=== PATIENT | male | born 1955 | race Caucasian/White ===

== ENCOUNTER 2022-09-13 11:18 | Emergency (ER) | payer OTHER ==
[2022-09-13] MEDS ORDERED: Acetaminophen 500 MG TAB ONE (11:46)
== END 2022-09-13 12:35 | disposition home or self-care (01) ==
LOC: NAV ERS 11:18 → EEVIPCON 11:18 → NAV ERS 12:35
DX: S00.03XA Contusion of scalp, initial encounter (principal); S00.83XA Contusion of other part of head, initial encounter; E78.5 Hyperlipidemia, unspecified; I11.0 Hypertensive heart disease with heart failure; I50.9 Heart failure, unspecified; E11.9 Type 2 diabetes mellitus without complications; Z87.891 Personal history of nicotine dependence; Z79.01 Long term (current) use of anticoagulants; Y04.0XXA Assault by unarmed brawl or fight, initial encounter
CPT/HCPCS: 70450; 70486